=== PATIENT | female | born 1950 | race Two or more races ===

== ENCOUNTER 2020-02-04 10:03 | Day surgery (SDC) | payer OTHER ==
[2020-01-28 16:14] VITALS: BMI 29.2
[2020-02-04 12:41] VITALS: TEMP 98.1
[2020-02-04 13:50] VITALS: BP 134/80; PULSE 64
== END 2020-02-04 13:00 | disposition home or self-care (01) ==
LOC: FASU-ENDO 10:03
PROVIDERS: ATTEND Internal Medicine Gastroenterology
PROC: 0DB68ZX Excision of Stomach, Via Natural or Artificial Opening Endoscopic, Diagnostic (ICD-10-PCS; 2020-02-04)
PROC: 0DB58ZX Excision of Esophagus, Via Natural or Artificial Opening Endoscopic, Diagnostic (ICD-10-PCS; 2020-02-04)
PROC: 0DB98ZX Excision of Duodenum, Via Natural or Artificial Opening Endoscopic, Diagnostic (ICD-10-PCS; principal; 2020-02-04 11:57)
DX: K29.50 Unspecified chronic gastritis without bleeding (principal); B96.81 Helicobacter pylori [H. pylori] as the cause of diseases classified elsewhere
CPT/HCPCS: 88305-TC; 88342-TC